=== PATIENT | female | born 1985 | race Caucasian/White ===

== ENCOUNTER 2016-09-28 10:46 | Emergency (ER) | payer OTHER ==
[~2016-09-28 10:46] MED LIST: LEVE500 PO; LORA-475 PO; TOPI1TAB97 PO
[2016-09-28 10:48] VITALS: BP 94/60; PULSE 81; RESP 12; TEMP 98.7; O2SAT 99
--- NOTE | 2016-09-28 11:19 | PD ---
HPI Chief Complaint: Seizure Time Seen by Provider: 11:19 Travel History International Travel<30 days: No Contact w/Intl Traveler<30days: No Traveled to known affect area: No History of Present Illness HPI 31-year-old female with history of seizure disorder, currently on Keppra, mood disorder, and a pituitary tumor that is being followed outpatient by neurosurgery, presents to the emergency department for evaluation of a seizure this morning. There was no tongue biting or loss of bowel or bladder. Patient has been here in the past for similar complaint. Patient states that the Keppra is "causing my kidneys to fail." She tells me that they recently found another tumor on her brain. She is frustrated because she has not been able to get into a neurologist due to her "FUCKING MEDICAID". She states she has been taking her antiepileptic medication but she is not supposed to be taking any antipsychotics. She states that her goal for today is to "stop having the seizures." Denies chest pain or tightness. No difficulty breathing. Denies any recent illnesses, fever, or chills. No other symptoms to report. PFSH Past Medical History Anemia: Yes Arthritis: Yes Blood Disorders: No Bipolar Disorder: Yes Anxiety: Yes Depression: Yes Heart Rhythm Problems: No Cancer: Yes (Tumor, Ovarian-Uterine) Cardiovascular Problems: Yes (Two bad heart valves) High Cholesterol: No Chest Pain: Yes Congestive Heart Failure: No COPD: Yes (CHRONIC BRONCHITIS) Cerebrovascular Accident: No Diabetes: No (But reports has Gestation Diabetes (during )) Diminished Hearing: No Endocrine: No Gastrointestinal Disorders: No GERD: Yes Glaucoma: No Genitourinary: No Headaches: Yes (Painful migraines) Immune Disorder: No Musculoskeletal: Yes (DEGENERATIVE DISC DISEASE, SCOLIOSIS) Neurologic: Yes (BRAIN TUMOR) Psychiatric: Yes (PTSD) Reproductive: Yes (STATES SHE HAS A HORMONE IMBALANCE) Respiratory: Yes (CHRONIC BRONCHITIS) Immunizations Current: No Migraines: Yes Seizures: Yes (Multiple times (over 75) since last August.) Ulcer: Yes Menopausal: No : 8 Para: 5 Miscarriage: 3 : 1 Ovarian Cysts: Yes Dilation and Curettage (D&C): Yes Tubal Ligation: Yes (APRIL 2012) Past Surgical History Genitourinary Surgery: No Gynecologic Surgery: Yes (D & C, TUBAL) Other Surgery: Yes Social History Alcohol Use: Yes (SELDOM) Tobacco Use: Yes (1 PPD) Substance Use: Yes (pot) Allergies-Medications (Allergen,Severity, Reaction): Coded Allergies: Doxycycline (Verified Allergy, Severe, THROAT CLOSES, 09/28/16) Penicillin (Verified Allergy, Severe, 09/28/16) *MDRO Multi-Drug Resistant Organism (Verified Adverse Reaction, Unknown, ) MRSA (buttock wound) 2004 Reported Meds & Prescriptions Reported Meds & Active Scripts Active Reported Lipitor (Atorvastatin Calcium) 20 Mg Tab 20 Mg PO HS Topiramate 25 Mg Tab 25 Mg PO BID Ativan (Lorazepam) 2 Mg Tab 2 Mg PO Q8H PRN Keppra (Levetiracetam) 500 Mg Tab 500 Mg PO BID Review of Systems Except as stated in HPI: all other systems reviewed are Neg Physical Exam Narrative GENERAL: Well-nourished female patient, with bizarre affect, sitting in a wheelchair, in no acute distress SKIN: Warm and dry. HEAD: Atraumatic. Normocephalic. EYES: Pupils equal and round. No scleral icterus. No injection or drainage. ENT: No nasal bleeding or discharge. Mucous membranes pink and moist. NECK: Trachea midline. No JVD. CARDIOVASCULAR: Regular rate and rhythm. No murmur appreciated. RESPIRATORY: No accessory muscle use. Clear to auscultation. Breath sounds equal bilaterally. GASTROINTESTINAL: Abdomen soft, non-tender, nondistended. Hepatic and splenic margins not palpable. MUSCULOSKELETAL: No obvious deformities. No clubbing. No cyanosis. No edema. NEUROLOGICAL: Awake and alert. No obvious cranial nerve deficits. Motor grossly within normal limits. Normal speech. Data Data Last Documented VS Vital Signs Date Time Temp Pulse Resp B/P Pulse Ox O2 Delivery O2 Flow Rate FiO2 09/28/16 11:55 67 14 99 Room Air 09/28/16 10:48 98.7 94/60 Orders Electrocardiogram (09/28/16 11:18) Basic Metabolic Panel (Bmp) (09/28/16 11:18) Complete Blood Count With Diff (09/28/16 11:18) Magnesium (Mg) (09/28/16 11:18) Ua Includes Microscopic (09/28/16 11:31) Beta Hcg (Quant/Titer) (09/28/16 11:28) Ct Brain W/O Iv Contrast(Rout) (09/28/16 ) Labs Laboratory Tests Test 09/28/16 09/28/16 11:28 11:31 White Blood Count 5.9 TH/MM3 Red Blood Count 4.26 MIL/MM3 Hemoglobin 13.6 GM/DL Hematocrit 39.7 % Mean Corpuscular Volume 93.1 FL Mean Corpuscular Hemoglobin 31.9 PG Mean Corpuscular Hemoglobin 34.3 % Concent Red Cell Distribution Width 13.2 % Platelet Count 238 TH/MM3 Mean Platelet Volume 9.1 FL Neutrophils (%) (Auto) 50.9 % Lymphocytes (%) (Auto) 41.5 % Monocytes (%) (Auto) 5.7 % Eosinophils (%) (Auto) 1.4 % Basophils (%) (Auto) 0.5 % Neutrophils # (Auto) 3.0 TH/MM3 Lymphocytes # (Auto) 2.5 TH/MM3 Monocytes # (Auto) 0.3 TH/MM3 Eosinophils # (Auto) 0.1 TH/MM3 Basophils # (Auto) 0.0 TH/MM3 CBC Comment DIFF FINAL Differential Comment Sodium Level 142 MEQ/L Potassium Level 3.9 MEQ/L Chloride Level 110 MEQ/L Carbon Dioxide Level 24.3 MEQ/L Anion Gap 8 MEQ/L Blood Urea Nitrogen 12 MG/DL Creatinine 0.88 MG/DL Estimat Glomerular Filtration 75 ML/MIN Rate Random Glucose 96 MG/DL Calcium Level 9.4 MG/DL Magnesium Level 2.3 MG/DL Human Chorionic Gonadotropin, LESS THAN 1 Quant MIU/ML Urine Color LIGHT-YELLOW Urine Turbidity CLOUDY Urine pH 8.0 Urine Specific [place] 1.010 Urine Protein NEG mg/dL Urine Glucose (UA) NEG mg/dL Urine Ketones NEG mg/dL Urine Occult Blood NEG Urine Nitrite NEG Urine Bilirubin NEG Urine Urobilinogen LESS THAN 2.0 MG/DL Urine Leukocyte Esterase NEG Urine RBC LESS THAN 1 /hpf Urine Squamous Epithelial 2 /hpf Cells Urine Amorphous Sediment MANY MDM Medical Decision Making Medical Screen Exam Complete: Yes Emergency Medical Condition: Yes Medical Record Reviewed: Yes Differential Diagnosis Recurrent seizure versus pseudoseizure versus electrolyte abnormality versus conversion disorder Narrative Course 31-year-old female presents to the emergency department for evaluation of seizure that occurred this morning. Patient is not in a postictal state. She appears without distress. Workup was initiated in triage. Once a medical bed becomes available, patient will be transferred and care assumed by that provider. Condition: Stable Lavern Lerma Sep 28, 2016 11:19
[2016-09-28] MEDS ORDERED: LIPI20TA PO (12:02)
[2016-09-28 12:05] LABS: BASOPHIL % 0.5 % (0.0-2.0); EOSINOPHIL # 0.1 TH/MM3 (0-0.4); EOSINOPHIL % 1.4 % (0.0-4.0); HEMATOCRIT 39.7 % (35.0-46.0); HEMO FLAGS DIFF FINAL; LYMPH % 41.5 % (9.0-44.0); LYMPHOCYTE # 2.5 TH/MM3 (1.0-4.8); MEAN CELL VOLUME 93.1 FL (80.0-100.0); MEAN CORPUSCULAR HEMOGLOBIN 31.9 PG (27.0-34.0); MEAN CORPUSCULAR HGB CONC 34.3 % (32.0-36.0); MONO % 5.7 % (0.0-8.0); NEUT % 50.9 % (16.0-70.0); PLATELET COUNT 238 TH/MM3 (150-450); RED BLOOD COUNT 4.26 MIL/MM3 (4.00-5.30); RED CELL DISTRIBUTION WIDTH 13.2 % (11.6-17.2); WHITE BLOOD COUNT 5.9 TH/MM3 (4.0-11.0)
[2016-09-28 12:15] LABS: BLOOD, URINE NEG (NEG); GLUCOSE,URINE NEG (NEG); KETONE, URINE NEG (NEG); NITRITE,URINE NEG (NEG); SQUAMOUS EPITHELIAL CELL URINE 2 /hpf (0-5); URINE COLOR LIGHT-YELLOW (YELLW/STRAW)
[2016-09-28 12:31] LABS: ANION GAP 8 MEQ/L (5-15); BICARBONATE 24.3 MEQ/L (21.0-32.0); BLOOD UREA NITROGEN 12 MG/DL (7-18); CHLORIDE 110 MEQ/L (98-107); GLOMERULAR FILTRATION RATE 75 ML/MIN (>89); MAGNESIUM 2.3 MG/DL (1.5-2.5); POTASSIUM 3.9 MEQ/L (3.5-5.1); SODIUM (NA) 142 MEQ/L (136-145)
[2016-09-28 12:34] LABS: BETA HCG QUANT LESS THAN 1 MIU/ML (0-5)
--- NOTE | 2016-09-28 14:25 | RADRPT ---
EXAM DATE/TIME: 09/28/2016 13:45 [facility] COMPARISON: MRI BRAIN W & W/O CONTRAST, August 09, 2016, 14:18. CT BRAIN W/O CONTRAST, August 07, 2016, 16: 05. INDICATIONS : Patient had seizure today pain top of head RADIATION DOSE: 56.77 CTDIvol (mGy) MEDICAL HISTORY : Pituitary tumor SURGICAL HISTORY : Tubal ligation. ENCOUNTER: Initial ACUITY: 1 day PAIN SCALE: 8/10 LOCATION: cranial TECHNIQUE: Multiple contiguous axial images were obtained of the head. Using automated exposure control and adj ustment of the mA and/or kV according to patient size, radiation dose was kept as low as reasonably a chievable to obtain optimal diagnostic quality images. FINDINGS: CEREBRUM: The ventricles are normal for age. No evidence of midline shift hemorrhage or acute infarction. No extra-axial fluid collections are seen. The 9 mm sellar mass hypodense extending into the inferior cook prasellar cistern is stable and unchanged. POSTERIOR FOSSA: The cerebellum and brainstem are intact. The 4th ventricle is midline. The cerebellopontine angle i s unremarkable. EXTRACRANIAL: The visualized portion of the orbits is intact. SKULL: The calvaria is intact. No evidence of skull fracture. CONCLUSION: Stable 9 mm sellar hyperdense mass most likely adenoma. Otherwise negative and unchanged with no acut e abnormality.. Prince Bass MD on September 28, 2016 at 14:21 Board Certified Radiologist. This report was verified electronically.
--- NOTE | 2016-09-28 14:43 | PD ---
Data Data Last Documented VS Vital Signs Date Time Temp Pulse Resp B/P Pulse Ox O2 Delivery O2 Flow Rate FiO2 09/28/16 11:55 67 14 99 Room Air 09/28/16 10:48 98.7 94/60 Orders Electrocardiogram (09/28/16 11:18) Basic Metabolic Panel (Bmp) (09/28/16 11:18) Complete Blood Count With Diff (09/28/16 11:18) Magnesium (Mg) (09/28/16 11:18) Ua Includes Microscopic (09/28/16 11:31) Beta Hcg (Quant/Titer) (09/28/16 11:28) Ct Brain W/O Iv Contrast(Rout) (09/28/16 ) Labs Laboratory Tests Test 09/28/16 09/28/16 11:28 11:31 White Blood Count 5.9 TH/MM3 Red Blood Count 4.26 MIL/MM3 Hemoglobin 13.6 GM/DL Hematocrit 39.7 % Mean Corpuscular Volume 93.1 FL Mean Corpuscular Hemoglobin 31.9 PG Mean Corpuscular Hemoglobin 34.3 % Concent Red Cell Distribution Width 13.2 % Platelet Count 238 TH/MM3 Mean Platelet Volume 9.1 FL Neutrophils (%) (Auto) 50.9 % Lymphocytes (%) (Auto) 41.5 % Monocytes (%) (Auto) 5.7 % Eosinophils (%) (Auto) 1.4 % Basophils (%) (Auto) 0.5 % Neutrophils # (Auto) 3.0 TH/MM3 Lymphocytes # (Auto) 2.5 TH/MM3 Monocytes # (Auto) 0.3 TH/MM3 Eosinophils # (Auto) 0.1 TH/MM3 Basophils # (Auto) 0.0 TH/MM3 CBC Comment DIFF FINAL Differential Comment Sodium Level 142 MEQ/L Potassium Level 3.9 MEQ/L Chloride Level 110 MEQ/L Carbon Dioxide Level 24.3 MEQ/L Anion Gap 8 MEQ/L Blood Urea Nitrogen 12 MG/DL Creatinine 0.88 MG/DL Estimat Glomerular Filtration 75 ML/MIN Rate Random Glucose 96 MG/DL Calcium Level 9.4 MG/DL Magnesium Level 2.3 MG/DL Human Chorionic Gonadotropin, LESS THAN 1 Quant MIU/ML Urine Color LIGHT-YELLOW Urine Turbidity CLOUDY Urine pH 8.0 Urine Specific [place] 1.010 Urine Protein NEG mg/dL Urine Glucose (UA) NEG mg/dL Urine Ketones NEG mg/dL Urine Occult Blood NEG Urine Nitrite NEG Urine Bilirubin NEG Urine Urobilinogen LESS THAN 2.0 MG/DL Urine Leukocyte Esterase NEG Urine RBC LESS THAN 1 /hpf Urine Squamous Epithelial 2 /hpf Cells Urine Amorphous Sediment MANY MDM Supervised Visit with [facility]: Yes Narrative Course I, Dr. Short, have reviewed the advance practice practitioner's documentation and am in agreement, met with the patient face to face, made the diagnosis, and the medical decision making was done by me. See her note for further details. Briefly this is a 31-year-old female with history of seizure disorder on Keppra , pituitary adenoma, here for evaluation of having had a seizure this morning. The patient has been seen by neurology and neurosurgery in the past and voices dissatisfaction as no one will do anything for her pituitary adenoma. Upon initial assessment of the patient she is very comfortable. There are no focal neurologic findings. She is awake and alert. She states she is compliant with her Keppra 500 mg twice a day. Vital signs reviewed. CBC is unremarkable. BMP is unremarkable. Beta hCG is negative. UA is not suggestive of UTI. CT head shows a stable 9 mm sellar hyperdense mass most likely adenoma, otherwise negative and unchanged with no acute abnormality. Patient was made aware of all findings. She is resting comfortable he. She is stable for discharge home with outpatient follow-up with neurosurgery and neurology this week. She was informed on when to return to the emergency department patient verbalizes understanding and agreement with plan. Diagnosis Primary Impression: Breakthrough seizure Additional Impression: Pituitary adenoma Referrals: Tori Mehta MD 3 days Eliazar Castillo 3 days Additional Instruction: Follow-up with neurologist Dr Mehta this week. Follow-up with neurosurgeon Dr Castillo this week. Return to the emergency department for worsening symptoms or any other concerns. Disposition: 01 DISCHARGE HOME Condition: Stable Woody Short MD Sep 28, 2016 14:43
--- NOTE | 2016-09-28 16:00 | EKG ---
Date Performed: 09/28/2016 Time Performed: 12:00:02 PTAGE: 31 years EKG: SINUS BRADYCARDIA INCOMPLETE RIGHT BUNDLE BRANCH BLOCK BORDERLINE ECG NO SIGNIFICANT CHANGE FROM PRIOR ELECTROCARDIOGRAM. PREVIOUS TRACING : 08/09/2016 13.36 DOCTOR: Brijesh Jennings Interpretating Date/Time 09/28/2016 15:58:29
== END 2016-09-28 14:54 | disposition home or self-care (01) ==
LOC: NEPE 10:46
DX: R56.9 Unspecified convulsions (principal); R94.31 Abnormal electrocardiogram [ECG] [EKG]; D49.6 Neoplasm of unspecified behavior of brain; G40.909 Epilepsy, unspecified, not intractable, without status epilepticus
CPT/HCPCS: 70450; 80048; 81001; 83735; 84702; 85025; 93005

== ENCOUNTER 2016-11-14 16:23 | Emergency (ER) | payer OTHER ==
[~2016-11-14] VITALS: Ht 165.1 cm; Wt 64.0 kg
[~2016-11-14 16:23] MED LIST changes: +LIPI20TA PO
[2016-11-14 16:26] VITALS: BP 116/75; PULSE 75; RESP 15; TEMP 98; O2SAT 99
[2016-11-15] MEDS ORDERED: TOPI200 PO (01:16)
[2016-11-15] MEDS ORDERED: CLIN1CAP5 PO (02:37)
== END 2016-11-14 17:11 | disposition left against medical advice (07) ==
LOC: PHED 16:23
DX: S51.812A Laceration without foreign body of left forearm, initial encounter (principal); Z53.21 Procedure and treatment not carried out due to patient leaving prior to being seen by health care provider
CPT/HCPCS: 99281

== ENCOUNTER 2016-11-14 22:43 | Emergency (ER) | payer OTHER ==
[2016-11-14 23:17] VITALS: BP 106/64; PULSE 78; RESP 20; TEMP 97.4; O2SAT 100
[2016-11-15] MEDS ORDERED: LIDOCAINE 1%/EPINEPHrine 1:100,000 SOLN 20 ML VIAL INFIL ONE (01:15)
[2016-11-15] MEDS ORDERED: CLINDAMYCIN 150 MG CAP PO ONE (01:15)
[2016-11-15] MEDS ORDERED: TOPI200 PO (01:16)
[2016-11-15] MEDS ORDERED: CLIN1CAP5 PO (02:37)
--- NOTE | 2016-11-15 02:37 | PD ---
HPI Chief Complaint: Laceration/Skin Injury Time Seen by Provider: 00:51 Travel History International Travel<30 days: No Contact w/Intl Traveler<30days: No Traveled to known affect area: No History of Present Illness HPI 31-year-old female reports that wound with a razor to the left forearm. It was not intentional. She reports rabbit feces may have infested these wound. It happened several hours ago however she hasn't attempted family member says she arrived here about 6 hours after the initial injury. She reports some pain in the area as well as some paresthesias in the left hand in all nerve distributions. PFSH Past Medical History Anemia: Yes Arthritis: Yes Blood Disorders: No Bipolar Disorder: Yes Anxiety: Yes Depression: Yes Heart Rhythm Problems: No Cancer: Yes (Tumor, Ovarian-Uterine) Cardiovascular Problems: Yes (Two bad heart valves) High Cholesterol: No Chest Pain: Yes Congestive Heart Failure: No COPD: Yes (CHRONIC BRONCHITIS) Cerebrovascular Accident: No Diminished Hearing: No Endocrine: No Gastrointestinal Disorders: No GERD: Yes Glaucoma: No Genitourinary: No Headaches: Yes (Painful migraines) Immune Disorder: No Musculoskeletal: Yes (DEGENERATIVE DISC DISEASE, SCOLIOSIS) Neurologic: Yes (BRAIN TUMOR) Psychiatric: Yes (PTSD) Reproductive: Yes (STATES SHE HAS A HORMONE IMBALANCE) Respiratory: Yes (CHRONIC BRONCHITIS) Immunizations Current: No Migraines: Yes Seizures: Yes (Multiple times (over 75) since last August.) Ulcer: Yes ?: Not LMP: FOUR DAYS AGO Menopausal: No : 8 Para: 5 Miscarriage: 3 : 1 Ovarian Cysts: Yes Dilation and Curettage (D&C): Yes Tubal Ligation: Yes (APRIL 2012) Past Surgical History Genitourinary Surgery: No Gynecologic Surgery: Yes (D & C, TUBAL) Other Surgery: Yes Social History Alcohol Use: No Tobacco Use: Yes (1 PPD) Substance Use: Yes (pot) Allergies-Medications (Allergen,Severity, Reaction): Coded Allergies: Doxycycline (Verified Allergy, Severe, THROAT CLOSES, 11/14/16) Penicillin (Verified Allergy, Severe, 11/14/16) *MDRO Multi-Drug Resistant Organism (Verified Adverse Reaction, Unknown, ) MRSA (buttock wound) 2004 Uncoded Allergies: FISH (Allergy, Severe, Anaphylaxis, 11/14/16) Reported Meds & Prescriptions Reported Meds & Active Scripts Active Clindamycin (Clindamycin HCl) 150 Mg Cap 450 Mg PO Q8HR 7 Days Reported Topamax (Topiramate) 200 Mg Tab 500 Mg PO HS Lipitor (Atorvastatin Calcium) 20 Mg Tab 20 Mg PO HS Keppra (Levetiracetam) 500 Mg Tab 500 Mg PO BID Review of Systems General / Constitutional: No: Fever, Chills Cardiovascular: No: Chest Pain or Discomfort, Palpitations Physical Exam Narrative GENERAL: 31-year-old female pleasant no acute distress SKIN: Warm and dry. 3 cm laceration left forearm linear clean margins HEAD: Atraumatic. Normocephalic. EYES: Pupils equal and round. No scleral icterus. No injection or drainage. GASTROINTESTINAL: Abdomen soft, non-tender, nondistended. Hepatic and splenic margins not palpable. MUSCULOSKELETAL: No obvious deformities. No clubbing. No cyanosis. No edema. NEUROLOGICAL: Awake and alert. No obvious cranial nerve deficits. Motor grossly within normal limits. Normal speech. Hand fashion buyer is equal bilaterally. Median radial and ulnar nerve sensory distributions are intact. PSYCHIATRIC: Appropriate mood and affect; insight and judgment normal. Data Data Last Documented VS Vital Signs Date Time Temp Pulse Resp B/P Pulse Ox O2 Delivery O2 Flow Rate FiO2 11/14/16 23:17 97.4 78 20 106/64 100 Orders Lidocai-Epi 1%-1:100,000 Inj (Xylocaine- (11/15/16 01:15) Clindamycin (Cleocin) (11/15/16 01:15) Wound Care (11/15/16 02:41) MDM Medical Decision Making Medical Screen Exam Complete: Yes Emergency Medical Condition: Yes Medical Record Reviewed: Yes Differential Diagnosis Laceration, tendon injury, neurovascular injury Narrative Course Laceration repaired. Clindamycin started. Copious irrigation performed at bedside. Procedures Procedure Narrative LACERATION LOCATION: Left forearm LENGTH: 3 centimeters NUMBER OF STITCHES/GARFIELD: 4 REPAIR: The area of the laceration was prepped with Betadine and sterilely draped. The laceration was infiltrated with Lidocaine with epinephrine. The wound was copiously irrigated and explored without evidence of foreign body, tendon injury or neurovascular injury. The wound was closed using 4-0 Prolene. This was a single layer repair. A sterile dressing was applied. The patient was advised to keep the dressing clean and dry. Patient tolerated the procedure well. Diagnosis Primary Impression: Laceration of forearm, left Qualified Code: S51.812A - Laceration of forearm, left, initial encounter Referrals: RETURN TO ER IN 7 DAYS FOR SUTURE REMOVAL Additional Instructions: You have a choice when it comes to health care, and we are glad that you chose [facility]. Hopefully, we have met your expectations on today's visit. You are welcome to return to [facility] at any time, as we are committed to meeting the health care needs of our community. Med/Other Pt SpecificInfo: Prescription(s) given Scripts Clindamycin 150 Mg [id number] Mg PO Q8HR 7 Days Ref 0 Prov:Bharathi Abernathy MD 11/15/16 Disposition: 01 DISCHARGE HOME Condition: Stable Bharathi Abernathy MD Nov 15, 2016 02:37
== END 2016-11-15 02:53 | disposition home or self-care (01) ==
LOC: PHED 22:43
DX: S51.812A Laceration without foreign body of left forearm, initial encounter (principal); D64.9 Anemia, unspecified; M19.90 Unspecified osteoarthritis, unspecified site; F31.9 Bipolar disorder, unspecified; F41.8 Other specified anxiety disorders; J44.9 Chronic obstructive pulmonary disease, unspecified; F43.10 Post-traumatic stress disorder, unspecified; M51.36 Other intervertebral disc degeneration, lumbar region; M41.9 Scoliosis, unspecified; W45.8XXA Other foreign body or object entering through skin, initial encounter; Y93.9 Activity, unspecified; Y99.9 Unspecified external cause status; Y92.9 Unspecified place or not applicable
CPT/HCPCS: 12002

== ENCOUNTER 2017-03-13 18:20 | Emergency (ER) | payer MEDICAID, OTHER ==
[~2017-03-13] VITALS: Ht 167.6 cm; Wt 67.8 kg
[~2017-03-13 18:20] MED LIST changes: +CLIN1CAP5 PO; -LORA-475 PO; -TOPI1TAB97 PO; +TOPI200 PO
[2017-03-13 18:22] VITALS: BP 114/77; PULSE 72; RESP 18; TEMP 98.3; O2SAT 97
--- NOTE | 2017-03-13 18:47 | PD ---
HPI . c/o coughing and sore throat for 3 days Chief Complaint: Cold / Flu Symptoms Time Seen by Provider: 18:47 Travel History International Travel<30 days: No Contact w/Intl Traveler<30days: No Traveled to known affect area: No History of Present Illness HPI 31 yr old female here with c/o sore throat and coughing for 3 days. She says she has been coughing up mucous. No fever or chills. PFSH Past Medical History Anemia: Yes Arthritis: Yes Blood Disorders: No Bipolar Disorder: Yes Anxiety: Yes Depression: Yes Heart Rhythm Problems: No Cancer: Yes (Tumor, Ovarian-Uterine) Cardiovascular Problems: Yes (Two bad heart valves) High Cholesterol: No Chest Pain: Yes Congestive Heart Failure: No COPD: Yes (CHRONIC BRONCHITIS) Cerebrovascular Accident: No Diabetes: No (But reports has Gestation Diabetes (during )) Diminished Hearing: No Endocrine: No Gastrointestinal Disorders: No GERD: Yes Glaucoma: No Genitourinary: No Headaches: Yes (Painful migraines) Immune Disorder: No Musculoskeletal: Yes (DEGENERATIVE DISC DISEASE, SCOLIOSIS) Neurologic: Yes (BRAIN TUMOR) Psychiatric: Yes (PTSD) Reproductive: Yes (STATES SHE HAS A HORMONE IMBALANCE) Respiratory: Yes (CHRONIC BRONCHITIS) Immunizations Current: No Migraines: Yes Seizures: Yes (Multiple times (over 75) since last August.) Ulcer: Yes Tetanus Vaccination: < 5 Years Influenza Vaccination: No ?: Not LMP: 4 MONTH AGO-IRREGULAR PER PT. Menopausal: No : 8 Para: 5 Miscarriage: 3 : 1 Ovarian Cysts: Yes Dilation and Curettage (D&C): Yes Tubal Ligation: Yes (APRIL 2012) Past Surgical History Genitourinary Surgery: No Gynecologic Surgery: Yes (D & C, TUBAL) Other Surgery: Yes Social History Alcohol Use: No Tobacco Use: Yes (1 PPD) Substance Use: Yes (pot) Allergies-Medications (Allergen,Severity, Reaction): Coded Allergies: Doxycycline (Verified Allergy, Severe, THROAT CLOSES, 03/13/17) Penicillin (Verified Allergy, Severe, 03/13/17) *MDRO Multi-Drug Resistant Organism (Verified Adverse Reaction, Unknown, ) MRSA (buttock wound) 2004 Uncoded Allergies: FISH (Allergy, Severe, Anaphylaxis., 03/13/17) Reported Meds & Prescriptions Reported Meds & Active Scripts Active Ventolin Hfa 18 GM Inh (Albuterol Sulfate) 90 Mcg/Act Aer 2 Puff INH Q6H PRN Tessalon Perles (Benzonatate) 100 Mg Cap 100 Mg PO TID PRN 5 Days Zithromax Z-Gamal (Azithromycin) 250 Mg Dspk 250 Mg PO DIRECTED 500 MG (2 tabs) day 1, then 1 tab days 2-5. Prednisone 50 Mg Tab 50 Mg PO DAILY Reported Topamax (Topiramate) 200 Mg Tab 500 Mg PO HS Lipitor (Atorvastatin Calcium) 20 Mg Tab 20 Mg PO HS Keppra (Levetiracetam) 500 Mg Tab 500 Mg PO BID Review of Systems General / Constitutional: No: Fever Eyes: No: Visual changes HENT: Positive: Sore Throat, No: Headaches Cardiovascular: No: Chest Pain or Discomfort Respiratory: Positive: Cough, No: Shortness of Breath Gastrointestinal: No: Abdominal Pain Genitourinary: No: Dysuria Musculoskeletal: No: Pain Skin: No Rash Neurologic: No: Weakness Psychiatric: No: Depression Endocrine: No: Polydipsia Hematologic/Lymphatic: No: Easy Bruising Physical Exam Narrative GENERAL: AAO x 3, no acute distress, Well-nourished, well-developed patient. SKIN: Warm and dry. No visible rashes or bruising. HEAD: Normocephalic and atraumatic. EYES: No scleral icterus. No injection or drainage. ENT: No nasal drainage noted. Mucous membranes pink. Airway patent. No oropharynx abn. No TM abnormality. NECK: Supple, trachea midline. No JVD. no lymphadenopathy CARDIOVASCULAR: Regular rate and rhythm without murmurs, gallops, or rubs. RESPIRATORY: Breath sounds equally diminished bilaterally. No accessory muscle use. No rhonchi or rales. no wheezing. dry cough during exam GASTROINTESTINAL: visual inspection normal EXTREMITIES: No cyanosis or edema. BACK: No obvious deformity. NEURO: grossly intact PSYCH: AAO x 3, normal affect. Data Data Last Documented VS Vital Signs Date Time Temp Pulse Resp B/P Pulse Ox O2 Delivery O2 Flow Rate FiO2 03/13/17 18:34 Room Air 03/13/17 18:22 98.3 72 18 114/77 97 MDM Medical Decision Making Medical Screen Exam Complete: Yes Emergency Medical Condition: Yes Medical Record Reviewed: Yes Differential Diagnosis bronchitis, COPD, less likely pneumonia Narrative Course 31 yr old female here with sore throat and cough. On exam no gross abn. Likely bronchitis. She reports sore throat, do not suspect strep. Will provide abx. PCN allergy. Will cover with azithromycin, prednisone, tessalon perles and albuterol inhaler (PRN). Recommend outpt f/u with PCP. Advised smoking cessation. Diagnosis Primary Impression: Acute bronchitis Qualified Code: J20.9 - Acute bronchitis, unspecified organism Patient Instructions: General Instructions Additional Instructions: As we discussed the cough can last 6-8 weeks. Take medications as prescribed. If you are a smoker, try to quit. Follow up with your primary care provider. If you develop sudden onset or worsening of shortness or breath, please go to the nearest emergency room. Please return to emergency department if your symptoms return or worsen. Follow up with your primary care provider. Take medications as prescribed. Med/Other Pt SpecificInfo: Prescription(s) given Scripts Albuterol 18 GM Inh (Ventolin Hfa 18 GM Inh)90 Mcg/Act Aer2 Puff INH Q6H PRN ( SHORTNESS OF BREATH) #1 INHALER Ref 0 Prov:Kyle Costa MD 03/13/17 Benzonatate (Tessalon Perles)100 Mg [id number] Mg PO TID PRN (COUGH) 5 Days Ref 0 Prov:Kyle Costa MD 03/13/17 Azithromycin (Zithromax Z-Gamal)250 Mg [id number] Mg PO DIRECTED #1 DSPK 500 MG (2 tabs) day 1, then 1 tab days 2-5. Prov:Kyle Costa MD 03/13/17 Prednisone 50 Mg Tab50 Mg PO DAILY #5 TAB Prov:Kyle Costa MD 03/13/17 Marian Tabares Mar 13, 2017 18:47
[2017-03-13] MEDS ORDERED: VENTAER INH (18:54)
[2017-03-13] MEDS ORDERED: ZITHTAB PO (18:54)
[2017-03-13] MEDS ORDERED: PRED50 PO (18:54)
[2017-03-13] MEDS ORDERED: BENZ100 PO (18:54)
== END 2017-03-13 19:06 | disposition home or self-care (01) ==
LOC: PHEFT 18:20
DX: J20.9 Acute bronchitis, unspecified (principal); R07.0 Pain in throat; F17.200 Nicotine dependence, unspecified, uncomplicated; Z86.2 Personal history of diseases of the blood and blood-forming organs and certain disorders involving the immune mechanism; Z87.39 Personal history of other diseases of the musculoskeletal system and connective tissue; Z86.59 Personal history of other mental and behavioral disorders; Z86.79 Personal history of other diseases of the circulatory system; Z87.09 Personal history of other diseases of the respiratory system; Z87.19 Personal history of other diseases of the digestive system; Z86.69 Personal history of other diseases of the nervous system and sense organs
CPT/HCPCS: 99284

== ENCOUNTER 2017-05-05 00:52 | Emergency (ER) | payer MEDICAID ==
[~2017-05-05] VITALS: Ht 165.1 cm; Wt 64.5 kg
[~2017-05-05 00:52] MED LIST changes: +BENZ100 PO; -CLIN1CAP5 PO; +PRED50 PO; +VENTAER INH; +ZITHTAB PO
[2017-05-05 00:55] VITALS: BP 119/71; PULSE 87; RESP 18; TEMP 98.4; O2SAT 100
--- NOTE | 2017-05-05 01:44 | PD ---
HPI Chief Complaint: Injury Time Seen by Provider: 01:27 Travel History International Travel<30 days: No Contact w/Intl Traveler<30days: No Traveled to known affect area: No History of Present Illness HPI 31yo F with PTSD, adjustment disorder presents to the ED with c/o left calf pain after jumping in denominational at 9pm today. States she heard her left calf muscle pop and now she cant extend her left knee. She also fell backwards and hit her right back and has pain in her right scapula now. Denies any head trauma, LOC, chest pain, sob, n/v, abdominal pain, focal weakness or numbness. Took ibuprofen with no relieve. 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) High Cholesterol: No Chest Pain: Yes Congestive Heart Failure: No COPD: Yes (CHRONIC BRONCHITIS) Cerebrovascular Accident: No Cystic Fibrosis: Yes Diminished Hearing: No Endocrine: No Gastrointestinal Disorders: No GERD: Yes Glaucoma: No Genitourinary: No Headaches: Yes (Painful migraines) Immune Disorder: No Implanted Vascular Access Dvce: No Musculoskeletal: Yes (DEGENERATIVE DISC DISEASE, SCOLIOSIS) Neurologic: Yes (BRAIN TUMOR) Psychiatric: Yes (PTSD) Reproductive: Yes (STATES SHE HAS A HORMONE IMBALANCE) Respiratory: Yes (CHRONIC BRONCHITIS) Immunizations Current: No Migraines: Yes Seizures: Yes (Multiple times (over 75) since last August.) Ulcer: Yes Tetanus Vaccination: < 5 Years Influenza Vaccination: No ?: Not LMP: on it 05/04 Menopausal: No : 8 Para: 5 Miscarriage: 3 : 1 Ovarian Cysts: Yes Dilation and Curettage (D&C): Yes Tubal Ligation: Yes (APRIL 2012) Past Surgical History Genitourinary Surgery: No Gynecologic Surgery: Yes (D & C, TUBAL) Other Surgery: Yes Social History Alcohol Use: No Tobacco Use: Yes (1 PPD) Substance Use: Yes (pot) Allergies-Medications (Allergen,Severity, Reaction): Coded Allergies: doxycycline (Unverified Allergy, Severe, THROAT CLOSES, 04/19/17) penicillin G (Unverified Allergy, Severe, 04/19/17) *MDRO Multi-Drug Resistant Organism (Verified Adverse Reaction, Unknown, ) MRSA (buttock wound) 2004 Uncoded Allergies: FISH (Allergy, Severe, Anaphylaxis., 03/13/17) Reported Meds & Prescriptions Reported Meds & Active Scripts Active No Active Prescriptions or Reported Medications Review of Systems Except as stated in HPI: all other systems reviewed are Neg Physical Exam Narrative GENERAL: 31yo F in mild distress. SKIN: Focused skin assessment warm/dry. HEAD: Atraumatic. Normocephalic. EYES: Pupils equal and round. No scleral icterus. No injection or drainage. ENT: No nasal bleeding or discharge. Mucous membranes pink and moist. NECK: Trachea midline. No JVD. CARDIOVASCULAR: Regular rate and rhythm. No murmur appreciated. RESPIRATORY: No accessory muscle use. Clear to auscultation. Breath sounds equal bilaterally. GASTROINTESTINAL: Abdomen soft, non-tender, nondistended. No rebound tenderness or guarding. MUSCULOSKELETAL: +TTP left calf. No erythema. Soft calf. No ecchymoses. Left knee in flexion, states she cant extend because of calf pain. BACK: +TTP right medial scapula. No midline ttp thoracic or lumbar spine. NEUROLOGICAL: Awake and alert. No obvious cranial nerve deficits. Motor grossly within normal limits. Normal speech. PSYCHIATRIC: Appropriate mood and affect; insight and judgment normal. Data Data Last Documented VS Vital Signs Date Time Temp Pulse Resp B/P (MAP) Pulse Ox O2 Delivery O2 Flow Rate FiO2 05/05/17 00:55 98.4 87 18 119/71 (87) 100 Room Air Orders Orders Diazepam (Valium) (05/05/17 01:45) Shoulder, Limited(2vws) (05/05/17 ) Us Leg Soft Tissue (05/05/17 ) Acetaminophen (Tylenol) (05/05/17 01:45) Knee, Ltd (1 Or 2vws) (05/05/17 ) [facility] Medical Decision Making Medical Screen Exam Complete: Yes Emergency Medical Condition: Yes Differential Diagnosis Muscle spasm vs. muscle cramps vs. muscle injury vs. right scapula contusion Narrative Course 31yo F with c/o left calf pain that seems very musculoskeletal. Pt states she could not extend her knee so xray left knee completed and unremarkable. US left lower ext showed no abnormal fluid collections or mass identified in area of pain in left calf. Xray right shoulder unremarkable. Pt given valium and acetaminophen and is feeling much better. Pt is now able to fully extend left knee. Return precautions given. Diagnosis Primary Impression: Musculoskeletal pain Patient Instructions: General Instructions Departure Forms: Tests/Procedures Additional Instructions: Please follow up with your primary care physician in 3-7 days. Return to the ED if symptoms worsen. Med/Other Pt SpecificInfo: Prescription(s) given Scripts Acetaminophen (Tylenol) 325 Mg Tab 650 MG PO Q6H Y for PAIN SCALE 1 TO 4, #20 TAB 0 Refills Prov: Paulina Davies DO 05/05/17 Disposition: 01 DISCHARGE HOME Condition: Stable Paulina Davies DO May 05, 2017 01:44
[2017-05-05] MEDS ORDERED: ACETAMINOPHEN 325 MG TAB PO ONE (01:45)
[2017-05-05] MEDS ORDERED: DIAZEPAM 5 MG TAB PO ONE (01:45)
--- NOTE | 2017-05-05 02:27 | RADRPT ---
EXAM DATE/TIME: 05/05/2017 02:02 [facility] COMPARISON: No previous studies available for comparison. INDICATIONS : Right shoulder-scapula pain post fall. MEDICAL HISTORY : Seizures Pituitary tumor SURGICAL HISTORY : Tubal ligation. ENCOUNTER: Initial ACUITY: 1 day PAIN SCORE: 9/10 LOCATION: Right shoulder FINDINGS: Two view examination of the right shoulder demonstrates no evidence of fracture or dislocation. The glenohumeral and acromioclavicular joints are maintained. Bony mineralization is normal. CONCLUSION: Unremarkable limited examination of the right shoulder. Tank Puentes MD on May 05, 2017 at 2:22 Board Certified Radiologist. This report was verified electronically.
--- NOTE | 2017-05-05 02:29 | RADRPT ---
EXAM DATE/TIME: 05/05/2017 02:05 [facility] COMPARISON: No previous studies available for comparison. INDICATIONS : Left calf pain. MEDICAL HISTORY : Seizures Pituitary tumor SURGICAL HISTORY : Tubal ligation. ENCOUNTER: Initial ACUITY: Acute PAIN SCORE: Unknown LOCATION: Left leg FINDINGS: Two view examination of the left knee demonstrates no evidence of fracture or dislocation. Bony mine ralization is normal. The suprapatellar soft tissues have a normal configuration. CONCLUSION: Unremarkable limited examination of the left knee. Tank Puentes MD on May 05, 2017 at 2:25 Board Certified Radiologist. This report was verified electronically.
--- NOTE | 2017-05-05 02:32 | RADRPT ---
EXAM DATE/TIME: 05/05/2017 02:02 [facility] COMPARISON: No previous studies available for comparison. INDICATIONS : Evaluate for fluid collection. MEDICAL HISTORY : Gastroesophageal reflux disease. Chronic bronchitis. Cystic fibrosis. Migraine. Cardiac disorders . PTSD. Anemia. SURGICAL HISTORY : None. ENCOUNTER: Initial ACUITY: 1 day PAIN SCORE: 8/10 LOCATION: Left calf. AREA EVALUATED: Left calf. FINDINGS: MASSES: None. FLUID COLLECTIONS: None. OTHER: Negative. CONCLUSION: 1. No abnormal fluid collections or mass is identified in the area of pain in the left calf. Tank Puentes MD on May 05, 2017 at 2:29 Board Certified Radiologist. This report was verified electronically.
[2017-05-05] MEDS ORDERED: TYLE325T PO (03:30)
[2017-05-05 03:38] VITALS: BP 120/78
== END 2017-05-05 03:57 | disposition home or self-care (01) ==
LOC: NEPE 00:52
DX: M79.605 Pain in left leg (principal); M54.9 Dorsalgia, unspecified; M25.511 Pain in right shoulder; F43.10 Post-traumatic stress disorder, unspecified; F43.20 Adjustment disorder, unspecified; D64.9 Anemia, unspecified; F31.9 Bipolar disorder, unspecified; J44.9 Chronic obstructive pulmonary disease, unspecified; E84.9 Cystic fibrosis, unspecified
CPT/HCPCS: 73030; 73560; 76882; 99284

== ENCOUNTER 2017-09-28 19:32 | Emergency (ER) | payer MEDICAID ==
[~2017-09-28] VITALS: Ht 167.6 cm; Wt 65.9 kg
[~2017-09-28 19:32] MED LIST changes: -BENZ100 PO; -LEVE500 PO; -LIPI20TA PO; -PRED50 PO; -TOPI200 PO; +TYLE325T PO; -VENTAER INH; -ZITHTAB PO
[2017-09-28 19:35] VITALS: BP 121/83; PULSE 77; RESP 16; TEMP 98; O2SAT 100
[2017-09-28 21:30] LABS: BILIRUBIN, URINE NEG (NEG); BLOOD, URINE NEG (NEG); GLUCOSE,URINE NEG (NEG); KETONE, URINE NEG (NEG); MUCUS URINE FEW /lpf (OCC); NITRITE,URINE NEG (NEG); SQUAMOUS EPITHELIAL CELL URINE 1 /hpf (0-5); URINE COLOR YELLOW (YELLW/STRAW); URINE LEUKOCYTE ESTERASE NEG (NEG)
[2017-09-28] MEDS ORDERED: MORPHINE SULFATE 2 MG/ML INJ IV PUSH ONE (21:45)
[2017-09-28] MEDS ORDERED: SODIUM CHLOR 0.9% 1000 ML INJ 1,000 ML IV ONE (21:45)
[2017-09-28] MEDS ORDERED: METOCLOPRAMIDE HCL 10 MG/2 ML VIAL IV PUSH ONE (21:45)
[2017-09-28 22:24] LABS: AUTOMATED NEUTROPHIL # 3.5 TH/MM3 (1.8-7.7); BASOPHIL % 0.5 % (0.0-2.0); EOSINOPHIL # 0.1 TH/MM3 (0-0.4); EOSINOPHIL % 0.8 % (0.0-4.0); HEMATOCRIT 39.3 % (35.0-46.0); HEMOGLOBIN 13.8 GM/DL (11.6-15.3); LYMPH % 43.4 % (9.0-44.0); LYMPHOCYTE # 3.1 TH/MM3 (1.0-4.8); MEAN CELL VOLUME 92.2 FL (80.0-100.0); MEAN CORPUSCULAR HEMOGLOBIN 32.4 PG (27.0-34.0); MEAN CORPUSCULAR HGB CONC 35.1 % (32.0-36.0); MEAN PLATELET VOLUME 8.7 FL (7.0-11.0); MONO % 5.2 % (0.0-8.0); MONOCYTE # 0.4 TH/MM3 (0-0.9); NEUT % 50.1 % (16.0-70.0); PLATELET COUNT 247 TH/MM3 (150-450); RED BLOOD COUNT 4.27 MIL/MM3 (4.00-5.30); RED CELL DISTRIBUTION WIDTH 12.4 % (11.6-17.2); WHITE BLOOD COUNT 7.1 TH/MM3 (4.0-11.0)
[2017-09-28 22:34] LABS: ALBUMIN 4.3 GM/DL (3.4-5.0); AST (GOT) 18 U/L (15-37); BICARBONATE 24.8 MEQ/L (21.0-32.0); BLOOD UREA NITROGEN 11 MG/DL (7-18); CALCIUM 9.3 MG/DL (8.5-10.1); CHLORIDE 105 MEQ/L (98-107); GLOMERULAR FILTRATION RATE 98 ML/MIN (>89); GLUCOSE,RANDOM 85 MG/DL (74-106); LIPASE 178 U/L (73-393); SODIUM (NA) 137 MEQ/L (136-145)
[2017-09-28 22:38] LABS: ALKALINE PHOSPHATASE 62 U/L (45-117); ALT (GPT) 21 U/L (10-53); TOTAL BILIRUBIN ADULT 0.5 MG/DL (0.2-1.0); TOTAL PROTEIN 7.8 GM/DL (6.4-8.2)
[2017-09-28 23:31] VITALS: BP 145/76
[2017-09-28] MEDS ORDERED: DIATRIZOATE MEGLUM/DIATRIZOATE SOD 9 ML CUP ONE (23:38)
--- NOTE | 2017-09-28 23:42 | PD ---
HPI . Abdominal pain Chief Complaint: Abdominal Pain Time Seen by Provider: 21:30 Travel History International Travel<30 days: No Contact w/Intl Traveler<30days: No Traveled to known affect area: No History of Present Illness HPI Patient resists with chief complaint of upper abdominal pain onset has been many weeks ago. She states that it is gradually worsening. She reports no known exacerbating factors. She states that she cannot eat secondary to pain. She states that she has seen her primary care provider for this and is awaiting referral to a preservative filler machine operator. Symptoms are so severe that she cannot eat and is so weak that she cannot get out of bed. 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) High Cholesterol: No Chest Pain: Yes Congestive Heart Failure: No COPD: Yes (CHRONIC BRONCHITIS) Cerebrovascular Accident: No Cystic Fibrosis: Yes Diminished Hearing: No Endocrine: No Gastrointestinal Disorders: No GERD: Yes Glaucoma: No Genitourinary: No Headaches: Yes (Painful migraines) Immune Disorder: No Implanted Vascular Access Dvce: No Musculoskeletal: Yes (DEGENERATIVE DISC DISEASE, SCOLIOSIS) Neurologic: Yes (BRAIN TUMOR) Psychiatric: Yes (PTSD) Reproductive: Yes (STATES SHE HAS A HORMONE IMBALANCE) Respiratory: Yes (CHRONIC BRONCHITIS) Immunizations Current: No Migraines: Yes Seizures: Yes (Multiple times (over 76) since last August.) Ulcer: Yes ?: Not Menopausal: No : 8 Para: 5 Miscarriage: 3 : 1 Ovarian Cysts: Yes Dilation and Curettage (D&C): Yes Tubal Ligation: Yes (APRIL 2012) Past Surgical History Genitourinary Surgery: No Gynecologic Surgery: Yes (D & C, TUBAL) Other Surgery: Yes Social History Alcohol Use: No Tobacco Use: Yes (1 PPD) Substance Use: Yes (pot) Allergies-Medications (Allergen,Severity, Reaction): Coded Allergies: doxycycline (Unverified Allergy, Severe, THROAT CLOSES, 04/19/17) penicillin G (Unverified Allergy, Severe, 04/19/17) *MDRO Multi-Drug Resistant Organism (Verified Adverse Reaction, Unknown, ) MRSA (buttock wound) 2004 Uncoded Allergies: FISH (Allergy, Severe, Anaphylaxis., 03/13/17) Reported Meds & Prescriptions Reported Meds & Active Scripts Active Tylenol (Acetaminophen) 325 Mg Tab 650 Mg PO Q6H PRN Review of Systems Except as stated in HPI: all other systems reviewed are Neg Gastrointestinal: Positive: Abdominal Pain, Loss of Appetite Physical Exam Narrative GENERAL: Awake and alert and in no acute distress. SKIN: warm/dry. Normal color and turgor. HEAD: Normocephalic. Atraumatic. EYES: Pupils equal and round. No scleral icterus. No injection or drainage. ENT: No nasal bleeding or discharge. Mucous membranes pink and moist. NECK: Trachea midline. Full range of motion without pain.. CARDIOVASCULAR: Regular rate and rhythm. Heart sounds normal. RESPIRATORY: No accessory muscle use. Clear to auscultation. Breath sounds equal bilaterally. GASTROINTESTINAL: Abdomen soft. Mild upper abdominal tenderness with no guarding or rebound. Bowel sounds present. Nondistended. MUSCULOSKELETAL: No obvious deformities. NEUROLOGICAL: Awake and alert. No obvious cranial nerve deficits. Motor grossly within normal limits. Normal speech. PSYCHIATRIC: Appropriate mood and affect; insight and judgment normal. Data Data Last Documented VS Vital Signs Date Time Temp Pulse Resp B/P (MAP) Pulse Ox O2 Delivery O2 Flow Rate FiO2 09/28/17 23:31 80 16 145/76 (99) 100 09/28/17 19:35 98.0 Room Air Orders Orders Complete Blood Count With Diff (09/28/17 20:06) Comprehensive Metabolic Panel (09/28/17 20:06) Lipase (09/28/17 20:06) Urinalysis - C+S If Indicated (09/28/17 20:06) Ed Urine Pregnancytest Poc (09/28/17 20:06) Sodium Chlor 0.9% 1000 Ml Inj (Ns 1000 M (09/28/17 21:45) Morphine Inj (Morphine Inj) (09/28/17 21:45) Metoclopramide Inj (Reglan Inj) (09/28/17 21:45) Ct Abd/Pel W Iv Contrast(Rout) (09/28/17 22:09) Oral Contrast - Adult (09/28/17 23:33) Diatrizoate Liq ( Gastroview Liq) (09/28/17 23:38) Labs Laboratory Tests Test 09/28/17 20:45 09/28/17 21:30 Urine Color YELLOW Urine Turbidity CLEAR Urine pH 6.0 Urine Specific [place] 1.024 Urine Protein TRACE mg/dL Urine Glucose (UA) NEG mg/dL Urine Ketones NEG mg/dL Urine Occult Blood NEG Urine Nitrite NEG Urine Bilirubin NEG Urine Urobilinogen LESS THAN 2.0 MG/DL Urine Leukocyte Esterase NEG Urine RBC 1 /hpf Urine WBC 1 /hpf Urine Squamous Epithelial Cells 1 /hpf Urine Mucus FEW /lpf Microscopic Urinalysis Comment CULT NOT INDICATED White Blood Count 7.1 TH/MM3 Red Blood Count 4.27 MIL/MM3 Hemoglobin 13.8 GM/DL Hematocrit 39.3 % Mean Corpuscular Volume 92.2 FL Mean Corpuscular Hemoglobin 32.4 PG Mean Corpuscular Hemoglobin Concent 35.1 % Red Cell Distribution Width 12.4 % Platelet Count 247 TH/MM3 Mean Platelet Volume 8.7 FL Neutrophils (%) (Auto) 50.1 % Lymphocytes (%) (Auto) 43.4 % Monocytes (%) (Auto) 5.2 % Eosinophils (%) (Auto) 0.8 % Basophils (%) (Auto) 0.5 % Neutrophils # (Auto) 3.5 TH/MM3 Lymphocytes # (Auto) 3.1 TH/MM3 Monocytes # (Auto) 0.4 TH/MM3 Eosinophils # (Auto) 0.1 TH/MM3 Basophils # (Auto) 0.0 TH/MM3 CBC Comment DIFF FINAL Differential Comment Blood Urea Nitrogen 11 MG/DL Creatinine 0.70 MG/DL Random Glucose 85 MG/DL Total Protein 7.8 GM/DL Albumin 4.3 GM/DL Calcium Level 9.3 MG/DL Alkaline Phosphatase 62 U/L Aspartate Amino Transf (AST/SGOT) 18 U/L Alanine Aminotransferase (ALT/SGPT) 21 U/L Total Bilirubin 0.5 MG/DL Sodium Level 137 MEQ/L Potassium Level 3.5 MEQ/L Chloride Level 105 MEQ/L Carbon Dioxide Level 24.8 MEQ/L Anion Gap 7 MEQ/L Estimat Glomerular Filtration Rate 98 ML/MIN Lipase 178 U/L [facility] Medical Decision Making Medical Screen Exam Complete: Yes Emergency Medical Condition: Yes Differential Diagnosis Differential diagnosis of abdominal pain includes but is not limited to gastritis, pancreatitis, hepatitis, gastroenteritis, gallbladder disease, constipation, urinary retention, UTI, peptic ulcer disease, diverticulitis or appendicitis Narrative Course This patient presents complaining with chronic upper abdominal pain. I suggested to her that we do an abdominal CT with oral contrast to further evaluate her abdominal discomfort and inability to eat. She initially stated that she was agreeable to this. CBC & BMP Diagram 09/28/17 21:30 Total Protein 7.8, Albumin 4.3, Calcium Level 9.3, Alkaline Phosphatase 62, Aspartate Amino Transf (AST/SGOT) 18, Alanine Aminotransferase (ALT/SGPT) 21, Total Bilirubin 0.5 UA negative The patient drank her contrast but then reported that she is to sign out AGAINST MEDICAL ADVICE because of something which was going on at home with her children. Diagnosis Primary Impression: Abdominal pain Qualified Codes: R10.13 - Epigastric pain Disposition: 07 AGAINST MEDICAL ADVICE Condition: Stable Veronique Bae MD Sep 28, 2017 23:42
== END 2017-09-28 23:31 | disposition left against medical advice (07) ==
LOC: NEPC 19:32
DX: R10.13 Epigastric pain (principal); G89.29 Other chronic pain; D64.9 Anemia, unspecified; M19.90 Unspecified osteoarthritis, unspecified site; F31.9 Bipolar disorder, unspecified; J44.9 Chronic obstructive pulmonary disease, unspecified; E84.9 Cystic fibrosis, unspecified; K21.9 Gastro-esophageal reflux disease without esophagitis; M41.9 Scoliosis, unspecified
CPT/HCPCS: 80053; 81001; 83690; 84703; 85025; 96361; 96374; 96375; 99283; J2270; J2765; J7030; Q9963